=== PATIENT | male | born 1975 | race Caucasian/White ===

== ENCOUNTER 2017-01-28 10:37 | Emergency (ER) | payer OTHER ==
[2017-01-28 10:49] VITALS: BP 181/80; PULSE 90; TEMP 98.4; BMI 34.2
[2017-01-28] MEDS ORDERED: IBUPROFEN 600 MG TABLET (FP) PO ONE ×2 (11:26→11:29)
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
== END 2017-01-28 12:01 | disposition home or self-care (01) ==
LOC: JER 10:37 → JERFT 10:37
DX: S50.11XA Contusion of right forearm, initial encounter (principal); S90.01XA Contusion of right ankle, initial encounter; W17.81XA Fall down embankment (hill), initial encounter; Y93.89 Activity, other specified; Y92.828 Other wilderness area as the place of occurrence of the external cause; Y99.0 Civilian activity done for income or pay
CPT/HCPCS: 73090-TC-RT; 99281-25

== ENCOUNTER 2017-07-12 14:31 | Emergency (ER) | payer OTHER ==
[2017-07-12] MEDS ORDERED: DIPHTH,PERTUSS(ACELL),TET 0.5 ML DISP.SYRIN IM ONE (14:45)
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
[2017-07-12 14:46] VITALS: BP 140/95; PULSE 87; TEMP 98.8; BMI 34.2
[2017-07-12 15:33] LABS: BASO % 0.3 % (0-2.0); EOS # 0.3 #; EOS % 6.3 % (0-4.5); LYMPH # 1.9; MCH 28.7 pg (25.7-33.7); MCHC 33.3 g/dl (32.0-35.9); MEAN CELL VOLUME 86.3 fl (80-96); MEAN PLT VOLUME 9.3 fl (7.5-11.1); MONO # 0.4 #; NEUT # 2.4 #; NEUT % 47.9 % (42.8-82.8); PLATELET COUNT 228 K/MM3 (134-434); RDW 13.6 % (11.9-15.9); WHITE BLOOD COUNT 5.1 K/mm3 (4.0-10.0)
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
[2017-07-12 16:22] LABS: ANION GAP 12 (8-16); CO2 23 mmol/L (21-32); SGPT/ALT 48 U/L (12-78); URIC ACID 6.4 mg/dL (2.6-7.2)
[2017-07-12 16:29] LABS: ALBUMIN 4.6 g/dl (3.4-5.0); ALK PHOS 62 U/L (45-117); BILIRUBIN,TOTAL 0.8 mg/dL (0.2-1.0); CALCIUM 9.5 mg/dL (8.5-10.1); CHOLESTEROL 165 mg/dL (50-200); GLUCOSE,RANDOM 119 mg/dL (74-106); LDH 201 U/L (87-241); PHOSPHOROUS 3.3 mg/dL (2.5-4.9); SGOT/AST 23 U/L (15-37)
[2017-07-12 16:48] LABS: HIV 1 & 2 AB NEGATIVE; HIV 1 AGp24 NEGATIVE
== END 2017-07-12 16:53 | disposition home or self-care (01) ==
LOC: JERFT 14:31
PROC: 3E0234Z Introduction of Serum, Toxoid and Vaccine into Muscle, Percutaneous Approach (ICD-10-PCS; principal; 2017-07-12)
DX: Z77.21 Contact with and (suspected) exposure to potentially hazardous body fluids (principal); S60.512A Abrasion of left hand, initial encounter; Y35.891A Legal intervention involving other specified means, law enforcement official injured, initial encounter; Y93.89 Activity, other specified; Y92.89 Other specified places as the place of occurrence of the external cause; Y99.0 Civilian activity done for income or pay
CPT/HCPCS: 36415; 80053; 82465; 82977; 83615; 84100; 84478; 84550; 85025; 86704; 86803; 87340; 87389; 90715; 99281-25

== ENCOUNTER 2018-04-26 10:40 | Emergency (ER) | payer OTHER ==
[2018-04-26 10:50] VITALS: BP 144/96; PULSE 96; TEMP 98.6; BMI 34.2
[2018-04-26] MEDS ORDERED: IBUPROFEN 600 MG TABLET (FP) PO ONE (11:05)
--- NOTE | 2018-04-26 11:11 | PDOC ---
History of Present Illness - General Chief Complaint: Injury Stated Complaint: [employer], INJURY Time Seen by Provider: 04/26/18 11:01 History Source: Patient Exam Limitations: No Limitations - History of Present Illness Initial Comments: 04/26/18 11:09 [place] PO with left thumb injury while restraining an EDP at work today. Pt states his thumb bent backwards causing pain to thumb and palm. pt is right hand dominant Past History - Past Medical History Allergies/Adverse Reactions: Allergies Allergy/AdvReac Type Severity Reaction Status Date / Time Penicillins Allergy Difficulty Verified 04/26/18 10:45 Breathing Home Medications: Ambulatory Orders Rosuvastatin [Crestor -] 10 mg PO DAILY 07/12/17 COPD: No Hypercholesterolemia: Yes - Immunization History Td Vaccination: Yes Immunization Up to Date: Yes - Suicide/Smoking/Psychosocial Hx Smoking Status: Yes Smoking History: Never smoked Years of Tobacco Use: 0 Have you smoked in the past 12 months: No Number of Cigarettes Smoked Daily: 0 Cigars Per Day: 0 Hx Alcohol Use: No Drug/Substance Use Hx: No Substance Use Type: None *Physical Exam - Vital Signs Last Vital Signs Temp Pulse Resp BP Pulse Ox 98.6 F 96 H 18 144/96 97 04/26/18 10:45 04/26/18 10:45 04/26/18 10:45 04/26/18 10:45 04/26/18 10:45 - Physical Exam General Appearance: Yes: Nourished, Appropriately Dressed HEENT: positive: EOMI, DICKSON Neck: positive: Supple. negative: Tender Respiratory/Chest: positive: Lungs Clear, Normal Breath Sounds Extremity: positive: Normal Capillary Refill, Normal Inspection, Normal Range of Motion, Tender (thenar surface soft tissue ). negative: Swelling, Erythema, Inflammation Integumentary: positive: Normal Color, Dry, Warm Neurologic: positive: Fully Oriented, Alert, Normal Mood/Affect, Normal Response , Motor Strength 5/5 Medical Decision Making - Medical Decision Making 04/26/18 11:11 cc: left thumb injury at work today after restraining an EDP at work thumb bent backwards no deformity or swelling nv intact FROM of the thumb pt refused xray no deformity , no bony tenderness will give motrin apply ice and have follow up with ortho as needed *DC/Admit/Observation/Transfer Diagnosis at time of Disposition: Injury, thumb Qualifiers: Encounter type: initial encounter Laterality: left Qualified Code(s): S69.92XA - Unspecified injury of left wrist, hand and finger(s), initial encounter - Discharge Dispostion Disposition: HOME Condition at time of disposition: Good - Referrals Referrals: Godwin Chamberlain MD [Staff Physician] - - Patient Instructions Additional Instructions: follow with the orthopedist if any worsening pain or swelling apply ice every 2hrs for 15 minutes to the area of pain take ibuprofen as needed for pain - Post Discharge Activity
== END 2018-04-26 11:17 | disposition home or self-care (01) ==
LOC: JER 10:40 → JERFT 10:40
DX: S69.82XA Other specified injuries of left wrist, hand and finger(s), initial encounter (principal); Y35.811A Legal intervention involving manhandling, law enforcement official injured, initial encounter; Y93.89 Activity, other specified; Y92.89 Other specified places as the place of occurrence of the external cause; Y99.0 Civilian activity done for income or pay
CPT/HCPCS: 99281-25

== ENCOUNTER 2018-12-10 03:27 | Emergency (ER) | payer OTHER | END 2018-12-10 05:10 | disposition home or self-care (01) | LOC: JER 03:27 ==